=== PATIENT | female | born 1985 | race Caucasian/White ===

== ENCOUNTER 2017-01-24 02:41 | Inpatient (IN) | payer BC ==
--- NOTE | 2017-01-25 12:17 | PR ---
[facility] [address] [facility] [place] [address] Signed PP Progress Notes Datetime Report Generated by CPN: 01/25/2017 12:17 SUBJECTIVE: [id number] Pain: Within normal limits Nausea/Vomiting: Denies Vital Signs: [id number] Vital Signs: Reviewed; Within Normal Limits Notable Details: PP Hgb/Hct = 10.7/30.5 EXAM: [id number] Cardiovascular: Normal Abdomen/Uterus: Normal Lochia: Normal Extremities: Normal IMPRESSION/PLAN/PROCEDURES: [id number] Impression: Normal progression Plan: Discharge Procedures: None Progress Notes: Doing well, wants to go home. Signing Physician: Doreen Shields MD CC: *Electronically Signed* 01/25/17 1217 DOREEN SHIELDS MD PATIENT NAME: FRANCO SANTIAGO PROGRESS NOTE DATE OF : 81 PHYSICIAN: DOREEN SHIELDS MD RPT #: [id number] REPORT IS CONFIDENTIAL AND NOT TO BE RELEASED WITHOUT AUTHORIZATION
== END 2017-01-25 17:00 | disposition home or self-care (01) | DRG 775 ==
LOC: FBCO 02:41 → FBC 02:50
PROVIDERS: ADMIT General Practice
PROC: 10E0XZZ Delivery of Products of Conception, External Approach (ICD-10-PCS; principal; 2017-01-24)
PROC: 0HQ9XZZ Repair Perineum Skin, External Approach (ICD-10-PCS; principal; 2017-01-24)
DX: O99.824 Streptococcus B carrier state complicating childbirth (principal); O70.0 First degree perineal laceration during delivery; Z37.0 Single live birth; Z3A.40 40 weeks gestation of pregnancy
CPT/HCPCS: 36415; 85027; J2590